=== PATIENT | male | born 1975 | race Caucasian/White ===

== ENCOUNTER 2024-01-19 20:55 | Emergency (ER) | payer OTHER, SELFPAY ==
[2024-01-19 20:55] VITALS: BMI 32.5
[2024-01-19 20:57] VITALS: BP 142/88
[2024-01-19 21:35] VITALS: BP 137/93
--- NOTE | 2024-01-19 22:01 | ED.GENMED ---
History of Present Illness
General
Chief Complaint: Skin Problem
Source: patient
Exam Limitations: none
Time Seen by Provider: 01/19/24 21:39
Nursing documentation reviewed up to this point in time: agreed with
History of Present Illness
History of Present Illness:
48 yo male presents to the emergency department c/o chest pain that began this evening radiating to his back. He had this several months ago and it went away. He is still having some pain at this time. He also complains of hives and swollen lip,
for which he is going to get in testing for on Thursday.
Past History
Past History
ED Past Medical History: GERD and Other (Hives)
ED Past Surgical History: Other (Hernia)
Social History
Tobacco: Non-smoker
Alcohol: None
Drug: None
Employment: Employed
Review of Systems
Review of Systems
Allergies reviewed?: Yes
All Other Systems: Not applicable
Constitutional: Reports no symptoms
EENT: Reports mouth swelling
Respiratory: Reports no symptoms
Cardiac: Reports chest pain
ABD/GI: Reports no symptoms
: Reports no symptoms
Musculoskeletal: Reports back pain
Skin: Reports no symptoms
Neurological: Reports no symptoms
Endocrine: Reports no symptoms
Hematologic/Lymphatic: Reports no symptoms
Psychiatric: Reports no symptoms
Phy Exam
Physical Exam
Physical Exam:
Physical Exam
General: no apparent distress, not acutely ill
Neck: supple. no meningeal signs. normal posterior pharynx
Heart: s1/s2 regular rate and rhythm, no murmur. equal radial
pulses.
HEENT: Pupils equal round reactive to light, EOMI, mild angioedema right lower lobe
Lungs: no acute respiratory distress. clear bilaterally
Abdomen: normal bowel sounds. not tender. no CVAT
Neuro: alert and oriented. no focal neurological deficits cranial nerves II through XII intact
Skin: no rash
Psychiatric: well kept. interactive and cooperative
Extremities: no edema. no calf tenderness. negative homans. good distal pulses
Course
Orders/Labs/Results
Orders:
Orders
01/19/24 21:32
EKG [Electrocardiogram (*1)] Urgent
Reason for Study: Chest Pain
01/19/24 21:33
EKG- Treatment ONCE
01/19/24 21:59
CT Chest/abd/pelvis Angio W/wo Urgent
Comment:
Reason For Exam: chest pain radiating to back
01/19/24 22:00
IV Insert/Care/Rem.- Treatment PRN
01/19/24 22:10
Complete Blood Count/With Diff Urgent
Comprehensive Metabolic Panel Urgent
Lipase Urgent
Troponin I Urgent
Abnormal Lab Results
01/19/24
22:10
MCH 31.4 H pg
(27.0-31.0)
Neutrophils % 76.1 H %
(42.2-75.2)
Lymphocytes % 14.9 L %
(20.5-51.1)
Carbon Dioxide 31 H mmol/L
(22-30)
Creatinine 1.5 H mg/dL
(0.7-1.3)
01/19/24 22:10
01/19/24 22:10
Vital Signs
Initial and Last Documented VS:
Initial Vital Signs
Temp Pulse Resp BP Pulse Ox
98.1 F 74 18 142/88 100
01/19/24 20:57 01/19/24 20:57 01/19/24 20:57 01/19/24 20:57 01/19/24 20:57
Last Documented Vital Signs
Temp Pulse Resp BP Pulse Ox
98.1 F 69 17 137/93 99
01/19/24 20:57 01/19/24 22:45 01/19/24 22:45 01/19/24 21:35 01/19/24 22:45
MDM/Problems Addressed
Differential Diagnosis Includes:
ACS, PE, aortic dissection, allergic reaction, angioedema
MDM/Problems Addressed:
48-year-old male with chest pain radiating to back, resolved. No acute findings on CT chest abdomen pelvis. Troponin negative. Angioedema stable. Follow-up with primary care.
*Radiology
Radiology exam reviewed: radiology read reviewed (CT chest abdomen pelvis no acute findings)
*Pulse Oximetry
Patient hypoxic: no
*EKG
Interpreted by ED Provider?: Yes
EKG Intrepretation Date: 01/19/24
EKG Intrepretation Time: 21:44
Interpretation: normal
Comparison EKG: no comparison EKG present
Heart Rate: 77
Rate: normal
Rhythm: sinus
[place]: normal axis
Interval: normal interval
QRS Pattern: normal QRS
Ischemia: no ischemia
*Semi Driver Interpretation
Rate: normal
Interpretation: normal
Heart Rate: 68
Rhythm: sinus
*Critical Care Note
Total Time (30-74mins, 75-104mins- exclusive of procedures): Not Applicable
Patient Management
Social determinants of health affecting care: Living situation
Escalation/DeEscalation of care consider admission/obs:
Admit not indicated
ED Attending Note
-
Portions of this chart may have been created with voice recognition software.� Occasional wrong word or��sound alike� substitutions may have occurred due to the inherent limitations of voice recognition software.
Discharge Plan
Departure
Patient Disposition: Home (Routine Discharge)
Date of Disposition: 01/20/24
Time of Disposition: 00:34
Patient with high blood pressure during this ER visit?: Yes
Condition: Good
Discharge Problem:
Chest pain, Angioedema
Instructions: Angioedema, Chest Pain PCP Follow Up, BLOOD PRESSURE
Prescriptions:
New
pantoprazole [Protonix] 40 mg tablet,delayed release (DR/EC)
40 mg PO DAILY Qty: 30 0RF
Referrals:
PRIVATE,PHYSICIAN [Family Provider] -
Activity Restrictions/Additional Instructions:
Follow-up with primary care in 3 to 5 days. Return for any concerns.
Interventions
Interventions:
*Risk Screen - Suicide Last Done: 01/19/24 20:57
*Neglect/Abuse Screening Last Done: 01/19/24 20:57
BD-Grkrwr-Wrdibxdjpx Assessment Last Done: 01/19/24 21:36
ED-Skin Assessment Last Done: 01/19/24 21:36
Discharge Date and Time
Print Language: DIVEHI
[2024-01-19 22:16] LABS: % Basophils 0.2 % (0-2); % Eosinophils 2.3 % (0-6); % Immature Granulocytes 0.4 % (0-0.5); % Lymphocytes 14.9 % (20.5-51.1); % Monocytes 6.1 % (1.7-9.3); % Neutrophils 76.1 % (42.2-75.2); Absolute Eosinophils 0.2 10^3/uL (0-0.7); Absolute Lymphocytes 1.2 10^3/uL (1.2-3.4); Absolute Monocytes 0.5 10^3/uL (0.1-0.6); Absolute Neutrophils 6.2 10^3/uL (1.4-6.5); Hematocrit 43.9 % (39.0-52.0); Hemoglobin 15.4 g/dL (13.0-18.0); Mean Corp Hgb Conc. 35.1 g/dL (33.0-37.0); Mean Corpuscular Hgb 31.4 pg (27.0-31.0); Mean Corpuscular Volume 89.6 fL (80.0-94.0); Mean Platelet Volume 9.9 fL (7.4-10.4); Nucleated Red Blood Cells % 0 % (-); Platelet Count 227 10^3/uL (130-400); Red Cell Dist. Width 12.9 % (11.5-14.5); White Blood Cell Count 8.2 10^3/uL (4.8-10.8)
[2024-01-19 22:38] LABS: ALT (SGPT) 44 U/L (0-50); AST (SGOT) 34 U/L (17-59); Albumin 4.3 g/dl (3.5-5.0); Alkaline Phosphatase 43 U/L (38-126); Blood Urea Nitrogen 20 mg/dl (9-20); Calcium 9.8 mg/dl (8.4-10.2); Carbon Dioxide 31 mmol/L (22-30); Chloride 102 mmol/L (98-107); Estimated Creatinine Clearance 78 ml/min; Glucose 86 mg/dl (70-99); Lipase 78 U/L (23-300); Potassium 4.4 mmol/L (3.5-5.1); Sodium 140 mmol/L (135-145); Total Bilirubin 0.6 mg/dl (0.2-1.3); Total Protein 7.1 g/dl (6.3-8.2); eGFR 56.72
[2024-01-19 22:45] LABS: Troponin I < 0.012 ng/ml
[2024-01-19 23:22] VITALS: BP 133/90
[2024-01-20] VITALS: BP 136/89
[2024-01-20 00:44] VITALS: BP 135/83
[2024-01-20] MEDS: PROTONIX 40 MG PO (00:44)
== END 2024-01-20 00:56 | disposition home or self-care (01) ==
LOC: EMR 20:55
PROVIDERS: EMERGENCY PHYSICIAN Emergency Medicine
DX: T78.3XXA Angioneurotic edema, initial encounter (principal); R07.89 Other chest pain; M54.9 Dorsalgia, unspecified; L50.9 Urticaria, unspecified; R03.0 Elevated blood-pressure reading, without diagnosis of hypertension; K21.9 Gastro-esophageal reflux disease without esophagitis
CPT/HCPCS: 99285; 71275; 74174; 80053; 83690; 84484; 85025; 93005; Q9967